=== PATIENT | female | born 2000 | race Caucasian/White ===

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

== ENCOUNTER 2019-03-16 18:19 | Emergency (ER) | payer BC ==
[~2019-03-16 18:19] MED LIST: ISOVUE-370 76%-LOCM 1 ML ONE
[2019-03-16] MEDS ORDERED: Dexamethasone 10 MG/ML VIAL ONE (20:17)
[2019-03-16] MEDS ORDERED: Ketorolac Tromethamine 30 MG/ML VIAL ONE ×2 (20:17→20:41)
[2019-03-16 20:32] LABS: Hemoglobin 13.7 g/dL (12.0-16.0); Mean Corpuscular Hemoglobin 25.8 pg (25.0-35.0); Mean Corpuscular Volume 80.7 fL (78.0-98.0); Mean Platelet Volume 8.1 fL (7.4-10.4); Platelet Count 416 thou/uL (130-400); RBC Distribution Width 12.4 % (11.5-14.5); Red Blood Cell (RBC) Count 5.31 mill/uL (4.00-5.20); White Blood Cell (WBC) Count 22.3 thou/uL (4.8-10.8)
[2019-03-16 20:34] LABS: ALT (SGPT) 8 U/L (8-55); AST (SGOT) 13 U/L (5-30); Albumin 4.7 g/dL (3.5-5.0); Alkaline Phosphatase 74 U/L (40-150); Anion Gap 17 mmol/L (10-20); BUN (Urea Nitrogen) 5 mg/dL (8.4-21.0); Bilirubin, Total 0.7 mg/dL (0.2-1.2); Calc. Creatinine Clearance 0 mL/min (70-130); Calcium 10.5 mg/dL (7.8-10.44); Carbon Dioxide 21 mmol/L (22-29); Chloride 102 mmol/L (98-107); Estimated GFR-MDRD 85; Globulin 4.3 g/dL (2.4-3.5); Glucose 72 mg/dL (70-105); Potassium 3.9 mmol/L (3.5-5.1); Sodium 136 mmol/L (136-145)
[2019-03-16 20:38] LABS: Band 5 % (5-11); Lymphocytes 8 % (28-48); MDiff Complete? YES; Monocytes 2 % (0-4); Neutrophil 85 % (31-61); Platelet Morphology Comment Appears Increased
[2019-03-16 20:39] LABS: BHCG - Serum Negative (NEGATIVE); Pregs Control Background? CLEAR/WHITE (CLR/WHITE); Pregs Control Bar Appear? YES (CONTROL BAR)
[2019-03-16] MEDS ORDERED: Dexamethasone 4 mg/ml Vial ONE (20:41)
[2019-03-16] MEDS ORDERED: Clindamycin/D5W 900 mg/50 ml Premix Bag ONE (21:35)
--- NOTE | 2019-03-16 21:56 | CT ---
CT NECK SOFT TISSUE WITH CONTRAST: Date: 03/16/19 INDICATION: Sore throat. FINDINGS: Marked enlargement of the left palatine tonsil is present with associated heterogeneous density and a focal area of decreased attenuation measuring 12 mm x 6 mm in axial dimensions, indicative of left s marisa palatine tonsillar abscess. There is associated mass effect, as well as rightward deviation of th e oropharyngeal airway. Effacement of the left piriform sinus. There is hypertrophy of the lingual to nsil with effacement of the preepiglottic space. No abnormal thickening of the epiglottis. Bilateral enlargement of the cervical chain lymph nodes is noted. No retropharyngeal edema. No discrete thyroid lesion. Submandibular and parotid glands are grossly unremarkable. Visualized upper lung zones are c lear. Subglottic tracheal air column is patent. There is scattered paranasal sinus mucosal thickening . IMPRESSION: 1. Evidence of left palatine tonsillar abscess with associated enlargement and mass effect producing rightward deviation of the oropharyngeal airway. Recommend otolaryngology consultation for further a ssessment. 2. Reactive bilateral cervical chain adenopathy. POS: [facility]
[2019-03-16] MEDS ORDERED: Morphine 2 MG/ML SYRINGE ONE ×2 (22:27→22:42)
[2019-03-16] MEDS ORDERED: Ondansetron PF 4 MG/2 ML Vial ONE (22:27)
[2019-03-16] MEDS ORDERED: Benzocaine 20% Spray 60 ML CAN ONE (22:58)
[2019-03-16] MEDS ORDERED: Lidocaine 1% w/Epinephrine 1:100K 20 ML VIAL ONE (22:58)
--- NOTE | 2019-03-17 04:40 | CON ---
DATE OF CONSULTATION: 03/16/2019 REASON FOR CONSULTATION: Possible peritonsillar abscess. CONSULTING PHYSICIAN: Dr. Florentino. HISTORY OF PRESENT ILLNESS: Ms. Queen is a 18-year-old white female with a 2-day history of progressively worsening sore throat, now is not able to open her mouth wide or swallow well, and is also not able to talk due to the pain. She complains of neck pain and fever. She has an elevated white count, and has no prior history of tonsillitis or sore throat, has otherwise been in good health. Please see her ER note for further details for past medical history and review of systems reviewed on this date. PHYSICAL EXAMINATION: GENERAL: Well-developed, well-nourished white female, in moderate distress. HEAD: Normocephalic and atraumatic. EYES: Pupils are equal, round, and reactive to light. Extraocular movements are intact. EARS: Tympanic membranes are intact, mobile, and clear. No fluid or infection is noted. NOSE: She has normal mucosa without any purulent drainage. ORAL CAVITY AND OROPHARYNX: Shows the right tonsil is 2+. The left tonsil is 3+. There is some significant amount of erythema or exudate noted. She does reluctantly open her mouth and there is limited trismus. There is no swelling of the soft palate or anterior tonsillar pillar. NECK: Shows a very tender jugulodigastric nodes on the left side. LUNGS: Clear to auscultation. HEART: Rate and rhythm regular without murmur or gallop. DIAGNOSTIC DATA: Review of her CT scan, her CT scan shows what appears to be a phlegmon within the tonsil itself. It does not appear to be a peritonsillar abscess, does not appear to be any collection of fluid that would able to be drained. There is some significant lymphadenopathy in the left neck. IMPRESSION: Tonsillitis with intratonsillar phlegmon and significant lymphadenopathy in the neck. I think the lymphadenopathy is causing her most of pain that she is complaining of. RECOMMENDATIONS: The recommendation is to put her on some antibiotics, either Augmentin or clindamycin would be my recommendation. Pain control with liquid narcotic medications and steroids reduce swelling. I have recommended drinking lots of fluids and followup if symptoms get worse or certainly if they continue to persist. Job ID: [id number]
== END 2019-03-17 00:10 | disposition home or self-care (01) ==
LOC: ERS 18:19
DX: J03.90 Acute tonsillitis, unspecified (principal); F98.8 Other specified behavioral and emotional disorders with onset usually occurring in childhood and adolescence; F41.9 Anxiety disorder, unspecified; N73.9 Female pelvic inflammatory disease, unspecified
CPT/HCPCS: 70491; 80053; 84703; 85025; 87081; 87430; 96361; 96365; 96375; J1100; J1885; J2001; J2270; J2405; J3490; Q9966